=== PATIENT | male | born 1960 | race Caucasian/White ===

== ENCOUNTER 2017-12-06 14:16 | Emergency (ER) | payer MEDICARE, MEDICAID ==
[~2017-12-06] VITALS: Ht 175.3 cm; Wt 83.9 kg
[~2017-12-06 14:16] MED LIST: BUPRENORPHIN-N1 EACH SL; DEPAKOTE500 MG PO; LISINOPRIL40 MG PO; PRILOSEC40 MG PO; SIMVASTATIN40 MG PO; SUBOXONE 8 MG-1 EACH PO; ZOLOFT100 MG PO
[2017-12-06] MEDS ORDERED: PERCOCET 5-3251 EACH PO (16:29)
== END 2017-12-06 16:50 | disposition home or self-care (01) ==
LOC: ED 14:16
DX: G89.29 Other chronic pain (principal); M54.9 Dorsalgia, unspecified; Z87.891 Personal history of nicotine dependence; F31.9 Bipolar disorder, unspecified; Z79.899 Other long term (current) drug therapy
CPT/HCPCS: 99283

== ENCOUNTER 2018-02-23 13:18 | Emergency (ER) | payer MEDICARE, MEDICAID ==
[~2018-02-23] VITALS: Ht 175.3 cm; Wt 83.9 kg
[~2018-02-23 13:18] MED LIST changes: +PERCOCET 5-3251 EACH PO
[2018-02-23] MEDS ORDERED: ROBAXIN-750750 MG PO (13:38)
== END 2018-02-23 14:22 | disposition home or self-care (01) ==
LOC: ED 13:18
DX: G89.29 Other chronic pain (principal); M54.5 Low back pain; F31.9 Bipolar disorder, unspecified; Z87.891 Personal history of nicotine dependence; Z88.0 Allergy status to penicillin; Z79.899 Other long term (current) drug therapy
CPT/HCPCS: 96372; 99283; J1885

== ENCOUNTER 2018-10-27 12:07 | Emergency (ER) | payer MEDICARE, MEDICAID ==
[~2018-10-27] VITALS: Ht 175.3 cm; Wt 83.9 kg
[~2018-10-27 12:07] MED LIST changes: +ROBAXIN-750750 MG PO
[2018-10-27] MEDS ORDERED: DICLOFENAC POTA50 MG PO (15:32)
[2018-10-27] MEDS ORDERED: CYCLOBENZAPRINE5 MG PO (15:32)
[2018-10-27] MEDS ORDERED: FLOMAX0.4 MG PO (15:32)
== END 2018-10-27 15:46 | disposition home or self-care (01) ==
LOC: ED 12:07
DX: N40.0 Benign prostatic hyperplasia without lower urinary tract symptoms (principal); R10.9 Unspecified abdominal pain; Z87.891 Personal history of nicotine dependence; Z88.0 Allergy status to penicillin; Z79.899 Other long term (current) drug therapy
CPT/HCPCS: 36415; 74177; 80053; 81001; 83690; 85025; 96361; 96374; 96375; 99284-25; J1885; J2270; J2405; J7040; Q9967